=== PATIENT | female | born 1990 | race Asian ===

== ENCOUNTER 2021-03-27 02:45 | Emergency (ER) | payer OTHER ==
[~2021-03-27] VITALS: Ht 157.5 cm; Wt 56.7 kg
--- NOTE | 2021-03-27 02:45 | NUR ---
seen and examined by DESTINI
[2021-03-27] MEDS ORDERED: PANTOPRAZOLE 40 MG TABEC PO ONE (02:50)
[2021-03-27] MEDS ORDERED: ACETAMINOPHEN EXTRA STRENGTH 500 MG TAB PO ONE (02:50)
--- NOTE | 2021-03-27 02:50 | NUR ---
medicated as per ERMDs order, tolerated well.
[2021-03-27 02:59] VITALS: BP 120/73
--- NOTE | 2021-03-27 04:10 | NUR ---
swabs for jayne, influenza sent to lab
[2021-03-27 04:50] LABS: ALBUMIN 3.6 g/dL (3.4-5.0); ANION GAP 9.8 (8-16); CARBON DIOXIDE 28.3 mmol/L (21-32); CREATININE 0.7 mg/dL (0.6-1.3); POTASSIUM 4.1 mmol/L (3.5-5.1); TOTAL BILIRUBIN 0.2 mg/dL (0.0-1.0)
--- NOTE | 2021-03-27 05:40 | NUR ---
still waiting for lab results
--- NOTE | 2021-03-27 08:37 | NUR ---
Patient discharged with v/s stable. Written and verbal after care instructions given and explained. Patient verbalized understanding. Ambulatory with steady gait. All questions addressed prior to discharge. Advised to follow up with PMD.
[2021-03-27 08:40] VITALS: BP 112/70
[2021-03-27 09:34] LABS: BASOPHILS # (AUTO) 0.1 K/uL (0.00-0.22); BASOPHILS % (AUTO) 0.8 % (0.0-2.0); EOSINOPHILS # (AUTO) 0.2 K/uL (0-0.4); EOSINOPHILS % (AUTO) 3.3 % (0.0-4.0); HEMATOCRIT 38.1 % (36-48); HEMOGLOBIN 12.5 g/dL (12.0-16.0); LYMPHOCYTES # (AUTO) 2.6 K/uL (2.5-16.5); LYMPHOCYTES % (AUTO) 41.3 % (20.5-51.1); MEAN CORPUSCULAR HEMOGLOBIN 31 pg (27-31); MEAN CORPUSCULAR HGB CONC 33 g/dL (33-37); MEAN CORPUSCULAR VOLUME 94.5 fL (80-94); MONOCYTES # (AUTO) 0.6 K/uL (0.8-1.0); MONOCYTES % (AUTO) 9.9 % (1.7-9.3); NEUTROPHILS # (AUTO) 2.8 K/uL (1.8-7.7); NEUTROPHILS % (AUTO) 44.7 % (42.2-75.2); PLATELET COUNT (AUTO) 276 K/uL (140-450); RED BLOOD CELL COUNT(AUTO) 4.03 MIL/uL (4.20-5.40); WHITE BLOOD COUNT (AUTO) 6.2 K/uL (4.8-10.8)
== END 2021-03-27 08:37 | disposition home or self-care (01) ==
LOC: MED 02:45
DX: R07.89 Other chest pain (principal); Z20.822 Contact with and (suspected) exposure to COVID-19; R09.89 Other specified symptoms and signs involving the circulatory and respiratory systems; R05.9 Cough, unspecified
CPT/HCPCS: 36415; 71045; 80053; 84484; 85025; 85379; 93005; 99285

== ENCOUNTER 2022-02-28 05:45 | Emergency (ER) | payer OTHER ==
[~2022-02-28] VITALS: Ht 157.5 cm; Wt 59.0 kg
[2022-02-28 06:14] VITALS: BP 117/90
--- NOTE | 2022-02-28 06:18 | NUR ---
to bed ambulatory
--- NOTE | 2022-02-28 06:22 | NUR ---
DESTINI SIN EXAMINING PT.
[2022-02-28] MEDS ORDERED: PANTOPRAZOLE 40 MG TABEC PO ONE (06:30)
[2022-02-28] MEDS ORDERED: DICYCLOMINE HCL LIQUID 20 MG, ALUMINUM HYD/MAG/SIMETHICONE 30 ML, LIDOCAINE VISCOUS 2% ... PO ONE ×3 (06:30)
[2022-02-28] MEDS ORDERED: ALUMINUM HYD/MAG/SIMETHICONE 30 ML UDC PO ONE (06:30)
[2022-02-28] MEDS ORDERED: ALUMINUM HYD/MAG/SIMETHICONE 30 ML UDC ONE (06:34)
[2022-02-28] MEDS ORDERED: DICYCLOMINE HCL LIQUID 10 MG/5 ML UDC ONE (06:34)
--- NOTE | 2022-02-28 06:39 | NUR ---
BLOOD DRAWN, COVID AND INFLUENZA SWABS COLLECTED AND SENT TO LAB
[2022-02-28 07:00] LABS: BASOPHILS % (AUTO) 0.4 % (0.0-2.0); EOSINOPHILS # (AUTO) 0.1 K/uL (0-0.4); EOSINOPHILS % (AUTO) 0.5 % (0.0-4.0); HEMOGLOBIN 13.1 g/dL (12.0-16.0); LYMPHOCYTES % (AUTO) 19.3 % (20.5-51.1); MEAN CORPUSCULAR HEMOGLOBIN 30 pg (27-31); MEAN CORPUSCULAR HGB CONC 34 g/dL (33-37); MEAN CORPUSCULAR VOLUME 89.2 fL (80-94); MONOCYTES # (AUTO) 0.8 K/uL (0.8-1.0); MONOCYTES % (AUTO) 7.3 % (1.7-9.3); NEUTROPHILS # (AUTO) 7.5 K/uL (1.8-7.7); NEUTROPHILS % (AUTO) 72.5 % (42.2-75.2); PLATELET COUNT (AUTO) 268 K/uL (140-450); RED BLOOD CELL COUNT(AUTO) 4.38 MIL/uL (4.20-5.40); RED CELL DISTRIBUTION WIDTH 12.8 % (11.6-13.7); WHITE BLOOD COUNT (AUTO) 10.3 K/uL (4.8-10.8)
--- NOTE | 2022-02-28 07:23 | NUR ---
HAND OFF CARE GIVEN TO LADONNA MCKEON
--- NOTE | 2022-02-28 07:24 | NUR ---
REPORT RECEIVED FROM JUAN ROCHA. ASSUMED CARE AT THIS TIME
--- NOTE | 2022-02-28 07:30 | NUR ---
pt at rest and sitting up in bed. bed at lowest position, bed rails upx1. states relief, denies pain at this time.
[2022-02-28 07:58] LABS: ALBUMIN 3.8 g/dL (3.4-5.0); ANION GAP 14.1 (8-16); CARBON DIOXIDE 26.4 mmol/L (21-32); CREATININE 0.7 mg/dL (0.6-1.3); POTASSIUM 3.5 mmol/L (3.5-5.1); TOTAL BILIRUBIN 0.2 mg/dL (0.0-1.0)
[2022-02-28 08:08] LABS: APPEARANCE,URINE HAZY (CLEAR); BILIRUBIN,URINE NEGATIVE (NEGATIVE); BLOOD, URINE TRACE-I (NEGATIVE); COLOR,URINE YELLOW (YELLOW); LEUKOCYTE ESTERASE ,URINE 1+ (NEGATIVE); NITRITE, URINE NEGATIVE (NEGATIVE); UGLUCOSE NEGATIVE (NEGATIVE)
[2022-02-28 08:18] LABS: CALCIUM OXALATE CRYSTALS,UR None Seen /HPF (None Seen); COARSE GRANULAR CASTS,URINE None Seen /LPF (None Seen); FINE GRANULAR CASTS,URINE None Seen /LPF (None Seen); HYALINE CASTS, URINE None Seen /LPF (None Seen); OTHER CASTS, URINE None Seen /LPF (None Seen); OTHER CRYSTALS,URINE None Seen /HPF (None Seen); RBC,URINE 0-5 /HPF (0-5); RED BLOOD CELL CASTS,URINE None Seen /LPF (None Seen); TRICHOMONAS,URINE None Seen /HPF (None Seen); TRIPLE PHOSPHATE CRYSTAL,UR None Seen /HPF (None Seen); URIC ACID CRYSTALS,URINE None Seen /HPF (None Seen); URINE AMORPHOUS URATE None Seen /HPF (None Seen); WAXY CASTS,URINE None Seen /LPF (None Seen); YEAST,URINE None Seen /HPF (None Seen)
[2022-02-28] MEDS ORDERED: CEPH-588 PO ×2 (08:25→08:34)
[2022-02-28] MEDS ORDERED: BEN10 PO ×2 (08:25→08:34)
[2022-02-28] MEDS ORDERED: cephALEXin 500 MG CAP PO ONE (08:25)
[2022-02-28] MEDS ORDERED: SUCR1TAB35 PO ×2 (08:25→08:34)
[2022-02-28] MEDS ORDERED: OMEP40EC24 PO ×2 (08:25→08:34)
[2022-02-28 08:38] VITALS: BP 120/78
--- NOTE | 2022-02-28 08:38 | NUR ---
Patient discharged with v/s stable. Written and verbal after care instructions FOR GASTRITIS AND UTI given and explained. Patient alert, oriented and verbalized understanding of instructions. Ambulatory with steady gait. All questions addressed prior to discharge. ID band removed. Patient advised to follow up with PMD. Rx of KELFEX, PRILOSEC, BENTYL AND CARAFATE given. Opportunity to ask questions provided and answered.
--- NOTE | 2022-02-28 08:39 | NUR ---
The patient's care was reviewed and supervised by Malena Schneider RN.
== END 2022-02-28 08:38 | disposition home or self-care (01) ==
LOC: MED 05:45
DX: K29.70 Gastritis, unspecified, without bleeding (principal); Z20.822 Contact with and (suspected) exposure to COVID-19; N39.0 Urinary tract infection, site not specified; R10.13 Epigastric pain; Z79.899 Other long term (current) drug therapy
CPT/HCPCS: 36415; 71045; 74018; 80053; 81001; 81025; 83690; 84703; 85025; 87086; 87426; 87804; 99284; Q0092